=== PATIENT | male | born 1955 | race Caucasian/White ===

== ENCOUNTER 2016-08-18 09:00 | Day surgery (SDC) | payer OTHER ==
[~2016-08-18] VITALS: Ht 182.9 cm; Wt 99.8 kg
[~2016-08-18 09:00] MED LIST: ASPI-973 PO; ATOR20TA PO; HYG25 PO; LISI10TA PO; MILK1CAP3 PO; OMEP40CA36 PO; SIME80TA53 PO; Sodium Chloride LOK Flush 10 mL Syringe IV PRN; fentaNYL-PF 50 mCg/mL 2 mL Inj IVPUSH PRN
[2016-08-18 09:22] VITALS: BP 165/93; PULSE 85; RESP 14; O2SAT 95
[2016-08-18] MEDS: 0.9% Sodium Chloride 1,000 ML IV SCH ×2 (10:09→10:22)
[2016-08-18 10:30] VITALS: BP 132/81; PULSE 65; RESP 16; O2SAT 94
--- NOTE | 2016-08-18 10:36 | PCM.ENDEGD ---
EGD Date of Service: Aug 18, 2016 Physician Kingsley Leal MD Pre Procedure Diagnosis: Nausea Post Procedure Dx & Findings: Esophagitis and gastritis Procedure Esophagogastroduodenoscopy PROCEDURE IN DETAIL: After proper sedation, Olympus video endoscope was inserted into patient's mouth and esophagus was successfully intubated. Scope introduced esophagus. Esophagus showed normal shiny whitish mucosa consistent with squamous cell component. Z line was irregular at 40 cm from the incisors. Biopsy obtained. Scope further advanced to the stomach. Stomach showed normal shiny mucosa with normal appearing rugae folds without any ulcer mass erosion however in the antrum, there was some redness consistent with gastritis. Biopsies obtained. Cardia fundus body antrum pylorus were all visualized. Retroflexion was done. Stomach was easily inflated and deflatable using air. Scope further events to the distal duodenum. Duodenum revealed normal villous structures with normal appearing folds without any mass ulcer erosion. Impression Possible esophagitis Possible gastritis Recommendation Follow up in the GI clinic with Dr. Solorio. Presedation Assessment Risks and Benefits Informed consent was obtained from the patient after all risks and benefits including but not limited to drug reaction, infection, pain, bleeding, perforation, as well as alternatives were discussed. Patient monitoring Continuous pulse oximetry, cardiac monitoring, blood pressure monitoring, IV access, and oxygen at 2L per nasal cannula. Periprocedural Fentanyl: Fentanyl 100mcg Incrementally Midazolam: Midazolam 4mg Incrementally Complications There were no periprocedural complications identified. Post Procedure Plan Post Procedure Recommendations 1. Restrict activities today. 2. Resume normal activities in the morning. 3. Resume medications. 4. GERD behavioral modification: - Avoid fatty, acidic, spicy, large meals - Do not lie down after meals - Do not eat or drink anything for at least 2 1/2 hours before going to bed at night - Discontinue tobacco and alcohol - Decrease or avoid caffeine - Avoid chocolate and mints - Decrease weight - Avoid aspirin and non steroidal anti-inflammatory agents (NSAID) such as Aleve, Advil, Mobic, Naproxen, Ibuprofen, etc 5. Add proton pump inhibitor. Take 30 minutes before 1st meal of the day. 6. Patient informed of normal post procedure side effects as bloating, drowsiness, blood streaking in the stool 7. If gastric biopsy reveal H.pylori, continue with appropriate treatment 8. If small bowel biopsy reveals celiac, continue with appropriate treatment 9. Please don't hesitate to call me with any questions Kingsley Leal MD Aug 18, 2016 10:35
--- NOTE | 2016-08-18 10:38 | PCM.ENDCOL ---
Colonoscopy Date of Service: Aug 18, 2016 Physician Kingsley Leal MD Pre Procedure Diagnosis: Screening personal history of colon polyp Post Procedure Dx & Findings: Polyp hemorrhoids diverticuli Procedure Colonoscopy PROCEDURE IN DETAIL: Prep adequate Withdrawal time 11 minutes After unremarkable rectal examination the Olympus video colonoscope was inserted patient's anal canal and was advanced to cecum. Landmarks were identified including the ileocecal valve and appendiceal orifice. Scope was withdrawn systematically. Visualized colonic mucosa showed healthy shiny mucosa with normal healthy-appearing vasculature. In the transverse colon, there was a 2 mm polyp which was removed completely using cold snare. In the descending colon there was a 3 mm polyp which was removed completely using cold snare. In the sigmoid colon and up to the distal ascending colon, small diverticuli noted. Most of these diverticuli were localized in the sigmoid colon. In the rectum retroflexion was done which showed hemorrhoids. Anal canal was inspected carefully on the way out and hemorrhoids noted. Impression Polyp 2 status post complete removal Diverticuli Hemorrhoids Personal history: Polyp Recommendation Repeat colonoscopy in 5 years Diverticula diet Presedation Assessment Risks and Benefits Informed consent was obtained from the patient after all risks and benefits including but not limited to drug reaction, infection, pain, bleeding, perforation, as well as alternatives were discussed. Patient monitoring Continuous pulse oximetry, cardiac monitoring, blood pressure monitoring, IV access, and oxygen at 2L per nasal cannula. Periprocedural Fentanyl: Fentanyl 25mcg Midazolam: Midazolam 1mg Incrementally Complications There were no periprocedural complications identified. Post Procedure Plan Post Procedure Recommendations 1. Restrict activities today. 2. Resume normal activities in the morning. 3. Resume medications. 4. Patient informed of normal post procedure side effects as bloating, drowsiness, blood streaking in the stool. 5. average risk CRCS. If colon polyps come back as: -Hyperplastic- can repeat colonoscopy in 10 years -Tubular adenoma- repeat colonoscopy in 5 years -Tubulovillous/villous adenoma- repeat colonoscopy in 3 years -If any dysplasia- return to clinic as soon as possible 6. Please don't hesitate to call me with any questions. Kingsley Leal MD Aug 18, 2016 10:37
[2016-08-18 10:39] VITALS: BP 132/71; PULSE 62; RESP 16; O2SAT 96
[2016-08-18 10:41] VITALS: BP 104/68; PULSE 76; RESP 16; O2SAT 96
--- NOTE | 2016-08-19 11:18 | PATH ---
SURGICAL PATHOLOGY Attending Physician:Kingsley Leal M.D. CASE STATUS: Signed Out PATIENT NAME: TYLER LOUIE PID: [id number] : 1955 DATE COLLECTED:08/18/2016 17:01 SPECIMEN: 1: Gastric, Biopsy 2: Esophagus, Biopsy 3: Colon, Biopsy 4: Colon, Biopsy CLINICAL HISTORY: 1). GASTRIC BIOPSY 2). DISTAL ESOPHAGUS BIOPSY 3). TRANSVERSE COLON POLYP 4). DESCENDING COLON POLYP FINAL DIAGNOSIS: 1.GASTRIC BIOPSY: DIFFUSE MILD TO MODERATE CHRONIC GASTRITIS INVOLVING ANTRAL MUCOSA AND MILD CHRONIC GASTRITIS INVOLVING FUNDIC MUCOSA. ANTRAL MUCOSA POSITIVE FOR INTESTINAL METAPLASIA. Immunohistochemistry for Helicobacter pending, to be reported by addendum. Negative for dysplasia and malignancy. 2.DISTAL ESOPHAGUS BIOPSY: FRAGMENTS OF GASTRIC CARDIA-TYPE MUCOSA WITH SEVERE DIFFUSE CHRONIC INFLAMMATION, FOCALLY ACTIVE WITH REACTIVE EPITHELIAL CHANGES. No squamous mucosa present. Immunohistochemistry for Helicobacter pending, to be reported by addendum. Negative for dysplasia and malignancy. 3.TRANSVERSE COLON POLYP: CHANGES CONSISTENT WITH SESSILE SERRATED ADENOMA. 4.DESCENDING COLON POLYP: TUBULAR ADENOMA. ICD10 code K29.70 GROSS DESCRIPTION: The specimen is received in four formalin filled containers labeled with the patient's name. 1). The specimen is sublabeled "gastric" and consists of 2 portions of tissue which aggregate to 0.3 x 0.3 x 0.2 CM. The specimen is entirely submitted in cassette 1A. 2). The specimen is sublabeled "distal esophagus" and consists of a 0.3 x 0.2 x 0.2 CM portion of tissue which is entirely submitted in cassette 2A. 3). The specimen is sublabeled "transverse colon polyp" and consists of a 0.6 x 0.4 x 0.2 CM portion of tissue which is entirely submitted in cassette 3A. 4). The specimen is sublabeled "descending colon polyp" and consists of a 0.3 x 0.3 x 0.2 CM portion of tissue which is entirely submitted in cassette 4A. 08/18/2016 [facility] MICRO DESCRIPTION: See diagnosis. ICD-9 CODES: CPT CODES: 1: 55511, 74578 2: 54713, 35644 3: 53217 4: 16780 PROCEDURE/ADDENDA: Immunohistochemistry SPI Interpretation {Not Entered} Results-Comments Immunohistochemistry Results: 1.GASTRIC BIOPSY: NEGATIVE FOR HELICOBACTER PYLORI BY IMMUNOHISTOCHEMISTRY. This test was developed and its performance characteristics determined by [facility]. It has not been cleared or approved by the [place]. Food and Drug Administration. The FDA has determined that such clearance or approval is not necessary. This test is used for clinical purposes. It should not be regarded as investigational or for research. Electronically Signed Out Jere Yee MD Immunohistochemistry SPI Interpretation {Not Entered} Results-Comments Immunohistochemistry Results:2.DISTAL ESOPHAGUS BIOPSY: NEGATIVE FOR HELICOBACTER PYLORI BY IMMUNOHISTOCHEMISTRY. This test was developed and its performance characteristics determined by [facility]. It has not been cleared or approved by the [place]. Food and Drug Administration. The FDA has determined that such clearance or approval is not necessary. This test is used for clinical purposes. It should not be regarded as investigational or for research. Electronically Signed Out Jere Yee MD Electronically Signed Out Jere Yee MD [facility] [address], [place] [address] Technical component performed at [facility], [address], [place], [address]
== END 2016-08-18 23:59 | disposition home or self-care (01) ==
LOC: END 09:00
PROVIDERS: ATTEND Internal Medicine
DX: Z12.11 Encounter for screening for malignant neoplasm of colon (principal); Z86.010 Personal history of colon polyps; D12.3 Benign neoplasm of transverse colon; D12.4 Benign neoplasm of descending colon; K57.30 Diverticulosis of large intestine without perforation or abscess without bleeding; K64.9 Unspecified hemorrhoids; K29.50 Unspecified chronic gastritis without bleeding; I10 Essential (primary) hypertension; R11.0 Nausea; K21.9 Gastro-esophageal reflux disease without esophagitis; E78.5 Hyperlipidemia, unspecified; R74.0 Nonspecific elevation of levels of transaminase and lactic acid dehydrogenase [LDH]; Z79.82 Long term (current) use of aspirin
CPT/HCPCS: 43239; 45385; 99153; G0500; J2250; J3010; J7030